=== PATIENT | male | born 1940 | race Caucasian/White ===

== ENCOUNTER 2020-06-14 11:49 | Emergency (ER) | payer OTHER ==
[~2020-06-14] VITALS: Ht 175.3 cm; Wt 72.6 kg
[2020-06-14 12:24] VITALS: BP_SYST 139
--- NOTE | 2020-06-14 12:24 | NUR ---
Patient to ER bed 2 to gown for evaluation. Side rails up. Report given to Emeli BUI.
--- NOTE | 2020-06-14 12:25 | NUR ---
Pt walked in to ER with c/o leg wound to LLE x 3weeks. V/S stable, pt is afebrile. Currently resting in bed, will continue to monitor.
--- NOTE | 2020-06-14 12:30 | NUR ---
ER Dr. Hein at bedside examining patient.
[2020-06-14] MEDS ORDERED: cephALEXin 500 MG CAPSULE PO ONE (12:45)
[2020-06-14] MEDS ORDERED: SULFAMETHOXAZOLE/TRIMETHOPR DS 1 TABLET PO ONE (12:45)
--- NOTE | 2020-06-14 12:55 | NUR ---
LLE wound cx collected and sent to the lab
[2020-06-14 13:28] VITALS: BP_SYST 144
--- NOTE | 2020-06-14 13:28 | NUR ---
Patient given written and verbal discharge instructions and verbalizes understanding. ER MD discussed with patient the results and treatment provided. Patient in stable condition. ID arm band removed. Rx of keflex,bactrim given. Patient educated on pain management and to follow up with PMD. Pain Scale 0/10. Opportunity for questions provided and answered. Medication side effect fact sheet provided.
== END 2020-06-14 13:28 | disposition home or self-care (01) ==
LOC: SED 11:49
DX: L03.116 Cellulitis of left lower limb (principal); F17.200 Nicotine dependence, unspecified, uncomplicated
CPT/HCPCS: 87070-TC; 99283

== ENCOUNTER 2022-01-25 13:17 | Emergency (ER) | payer OTHER ==
[~2022-01-25] VITALS: Ht 177.8 cm; Wt 68.0 kg
[2022-01-25 13:20] VITALS: BP_SYST 176
[2022-01-25 15:16] LABS: BASOPHILS % (AUTO) 0.7 % (0.0-2.0); EOSINOPHILS # (AUTO) 0.1 K/uL (0.0-0.4); EOSINOPHILS % (AUTO) 1.7 % (0.0-4.0); HEMOGLOBIN 12.3 g/dL (14.0-18.0); LYMPHOCYTES # (AUTO) 0.9 K/uL (1.0-5.5); LYMPHOCYTES % (AUTO) 11.8 % (20.5-51.5); MEAN CORPUSCULAR HEMOGLOBIN 30 pg (27-31); MEAN CORPUSCULAR HGB CONC 33 % (32-36); MEAN CORPUSCULAR VOLUME 90 fL (79.0-98.0); MONOCYTES # (AUTO) 0.8 K/uL (0.0-1.0); NEUTROPHILS # (AUTO) 5.4 K/uL (1.8-7.7); NEUTROPHILS % (AUTO) 74.8 % (40.0-70.0); PLATELET COUNT (AUTO) 212 K/uL (130-430); RED BLOOD CELL COUNT(AUTO) 4.11 MIL/uL (4.2-6.2); RED CELL DISTRIBUTION WIDTH 14.1 % (9.0-15.0); WHITE BLOOD COUNT (AUTO) 7.3 K/uL (4.8-10.8)
[2022-01-25 15:42] LABS: CALCIUM 8.4 mg/dL (8.4-11.0); CHLORIDE 105 mmol/L (98-107); CREATININE 1.63 mg/dL (0.55-1.30); GLUCOSE 92 mg/dL (70-99); POTASSIUM 4.4 mmol/L (3.5-5.1); SODIUM SERUM 137 mmol/L (136-145); UREA NITROGEN, BLOOD 21 mg/dL (8-21)
[2022-01-25 15:59] LABS: ANION GAP < 3 (5-15)
[2022-01-25 16:12] LABS: BILIRUBIN,URINE NEGATIVE (NEGATIVE); BLOOD, URINE 3+ (NEGATIVE); COLOR,URINE YELLOW (YELLOW); GLUCOSE,URINE NEGATIVE (NEGATIVE); KETONES,URINE NEGATIVE (NEGATIVE); LEUKOCYTE ESTERASE ,URINE 2+ (NEGATIVE); NITRITE, URINE NEGATIVE (NEGATIVE); PH,URINE 6.5 (5.0-8.0); PROTEIN URINE NEGATIVE (NEGATIVE); UROBILINOGEN,URINE 0.2 (0.2-1.0)
[2022-01-25] MEDS ORDERED: NACL 0.9% 1,000 ML IV ONE (16:15)
[2022-01-25 16:54] LABS: CLARITY/URINE HAZY (CLEAR)
[2022-01-25 17:01] LABS: BACTERIA,URINE FEW /HPF (None Seen); RBC,URINE 20-50 /HPF (0-3)
[2022-01-25 17:02] LABS: MUCUS,URINE None Seen /LPF (None Seen)
[2022-01-25 17:35] LABS: CALCIUM 8.4 mg/dL (8.4-11.0); CHLORIDE 107 mmol/L (98-107); CREATININE 1.46 mg/dL (0.55-1.30); GLUCOSE 85 mg/dL (70-99); POTASSIUM 4.8 mmol/L (3.5-5.1); SODIUM SERUM 136 mmol/L (136-145); UREA NITROGEN, BLOOD 20 mg/dL (8-21)
[2022-01-25 17:46] LABS: ANION GAP 3 (5-15)
[2022-01-25] MEDS ORDERED: CEPH250C PO (17:53)
[2022-01-25] MEDS ORDERED: cefTRIAXone 1 GM IVPB PREMIX 50 ML IV ONE (18:15)
[2022-01-25 18:50] VITALS: BP_SYST 158
== END 2022-01-25 18:51 | disposition home or self-care (01) ==
LOC: SED 13:17
DX: R33.9 Retention of urine, unspecified (principal)
CPT/HCPCS: 36415; 51702; 80048; 81000; 85025; 87086; 96361; 96365; 99284; J0696; J7030

== ENCOUNTER 2023-05-10 02:15 | Emergency (ER) | payer OTHER ==
[~2023-05-10] VITALS: Ht 172.7 cm; Wt 53.5 kg
[~2023-05-10 02:15] MED LIST: ACET325T PO; CYCL10TA25 PO; DOCU250C71 PO; HEPA500015 SUBCUT; MIRT-114 PO; ROCI2 IM/IV; SER25 PO
[2023-05-10 02:25] VITALS: BP_SYST 156; PULSE 70; RESP 17; TEMP 97.4; O2SAT 100
== END 2023-05-10 03:34 | disposition home or self-care (01) ==
LOC: SED 02:15
DX: T83.091A Other mechanical complication of indwelling urethral catheter, initial encounter (principal); I10 Essential (primary) hypertension; Z79.899 Other long term (current) drug therapy
CPT/HCPCS: 99283

== ENCOUNTER 2023-10-26 02:55 | Emergency (ER) | payer OTHER ==
[~2023-10-26] VITALS: Ht 175.3 cm; Wt 63.5 kg
[2023-10-26 02:55] VITALS: BP_SYST 154; PULSE 70; RESP 18; TEMP 97.8; O2SAT 98
[~2023-10-26 02:55] MED LIST changes: -MIRT-114 PO; +MIRT-147 PO
[2023-10-26] MEDS ORDERED: MORPHINE 4 MG INJ. 4 MG/ML VIAL IM ONE (03:15)
[2023-10-26] MEDS ORDERED: MORPHINE 4 MG INJ. 4 MG/ML VIAL ONE (03:17)
[2023-10-26 03:41] LABS: BILIRUBIN,URINE NEGATIVE (NEGATIVE); BLOOD, URINE 3+ (NEGATIVE); CLARITY/URINE SL CLOUDY (CLEAR); COLOR,URINE YELLOW (YELLOW); GLUCOSE,URINE NEGATIVE (NEGATIVE); KETONES,URINE NEGATIVE (NEGATIVE); LEUKOCYTE ESTERASE ,URINE 3+ (NEGATIVE); NITRITE, URINE POSITIVE (NEGATIVE); PROTEIN URINE 1+ (NEGATIVE); UROBILINOGEN,URINE 0.2 (0.2-1.0)
[2023-10-26 03:49] LABS: BACTERIA,URINE MODERATE /HPF (None Seen); RBC,URINE >100 /HPF (0-3); WBC,URINE 50-80 /HPF (0-3)
[2023-10-26] MEDS ORDERED: Cefpodoxime PO (03:52)
[2023-10-26 05:29] VITALS: BP_SYST 171; PULSE 63; RESP 18; O2SAT 96
== END 2023-10-26 05:32 | disposition home or self-care (01) ==
LOC: SED 02:55
DX: T83.098A Other mechanical complication of other urinary catheter, initial encounter (principal); R10.30 Lower abdominal pain, unspecified; I10 Essential (primary) hypertension; Z79.899 Other long term (current) drug therapy
CPT/HCPCS: 99284; 81001; 87086; 51702; 96372; 81000; 81015; J2270

== ENCOUNTER 2024-06-23 04:39 | Emergency (ER) | payer OTHER ==
[~2024-06-23] VITALS: Ht 177.8 cm; Wt 46.3 kg
[~2024-06-23 04:39] MED LIST changes: +Cefpodoxime PO
[2024-06-23 04:44] VITALS: BP_SYST 180; PULSE 54; RESP 18; TEMP 98.4; O2SAT 99
[2024-06-23 06:02] VITALS: BP_SYST 166; PULSE 61; RESP 18; TEMP 98.4; O2SAT 99
== END 2024-06-23 06:00 | disposition home or self-care (01) ==
LOC: SED 04:39
DX: T83.091A Other mechanical complication of indwelling urethral catheter, initial encounter (principal); I10 Essential (primary) hypertension; N40.0 Benign prostatic hyperplasia without lower urinary tract symptoms; Z79.899 Other long term (current) drug therapy; Z85.828 Personal history of other malignant neoplasm of skin; Y84.6 Urinary catheterization as the cause of abnormal reaction of the patient, or of later complication, without mention of misadventure at the time of the procedure; Y92.89 Other specified places as the place of occurrence of the external cause
CPT/HCPCS: 99284

== ENCOUNTER 2024-07-15 16:21 | Emergency (ER) | payer OTHER ==
[~2024-07-15] VITALS: Ht 177.8 cm; Wt 46.3 kg
[2024-07-15 16:21] VITALS: BP_SYST 116; PULSE 75; RESP 18; TEMP 98.4; O2SAT 100
[2024-07-15] MEDS: KETOROLAC TROMETHAMINE 30 MG VIAL IM ONE (18:18)
[2024-07-15 18:49] LABS: BILIRUBIN,URINE NEGATIVE (NEGATIVE); BLOOD, URINE 2+ (NEGATIVE); CLARITY/URINE CLEAR (CLEAR); COLOR,URINE YELLOW (YELLOW); GLUCOSE,URINE NEGATIVE (NEGATIVE); KETONES,URINE NEGATIVE (NEGATIVE); LEUKOCYTE ESTERASE ,URINE 3+ (NEGATIVE); NITRITE, URINE POSITIVE (NEGATIVE); PH,URINE 7.5 (5.0-8.0); PROTEIN URINE 2+ (NEGATIVE); UROBILINOGEN,URINE 0.2 (0.2-1.0)
[2024-07-15 19:18] LABS: RBC,URINE >100 /HPF (0-3)
[2024-07-15 19:19] LABS: BACTERIA,URINE MANY /HPF (None Seen); WBC,URINE >100 /HPF (0-3)
[2024-07-15] MEDS ORDERED: LIDOCAINE 1%, 20 ML MDV 20 ML ONE (20:29)
[2024-07-15] MEDS: cefTRIAXone 1 GM VIAL IM ONE (20:36)
[2024-07-15] MEDS ORDERED: LEVO-62 PO (20:39)
[2024-07-15 20:50] VITALS: BP_SYST 116; PULSE 75; RESP 18; TEMP 98.4; O2SAT 100
== END 2024-07-15 20:44 | disposition home or self-care (01) ==
LOC: SED 16:21
DX: N39.0 Urinary tract infection, site not specified (principal); N40.0 Benign prostatic hyperplasia without lower urinary tract symptoms; I10 Essential (primary) hypertension; Z85.828 Personal history of other malignant neoplasm of skin; Z79.899 Other long term (current) drug therapy
CPT/HCPCS: 99284; 81001; 87086; 96372; J0696; J1885; J2003; 81000; 81015

== ENCOUNTER 2024-07-19 00:24 | Inpatient (IN) | payer OTHER ==
[~2024-07-19] VITALS: Ht 177.8 cm; Wt 55.8 kg
[~2024-07-19 00:24] MED LIST changes: +LEVO-62 PO
[2024-07-19 00:44] VITALS: BP_SYST 135; PULSE 78; RESP 20; TEMP 98; O2SAT 95
[2024-07-19] MEDS ORDERED: PIPERACILLIN/TAZOBACTAM 3.375 GM/VIAL (ZOSYN) IV ONE ×2 (01:41→08:15)
[2024-07-19] MEDS: PIPERACILLIN/TAZO 3.375 GM in NS 50 ML IV ONE (01:50)
[2024-07-19] MEDS: MORPHINE 2 MG/ML INJ. SYRINGE IVP ONE ×2 (01:52→03:58)
[2024-07-19 02:29] LABS: ANION GAP 8 (5-15); CALCIUM 9.1 mg/dL (8.4-11.0); CARBON DIOXIDE 26 mmol/L (23-29); CHLORIDE 106 mmol/L (98-107); CREATININE 2.62 mg/dL (0.55-1.30); GLUCOSE 79 mg/dL (74-106); POTASSIUM 4.5 mmol/L (3.5-5.1); SODIUM SERUM 140 mmol/L (136-145); UREA NITROGEN, BLOOD 56 mg/dL (8-21)
[2024-07-19 02:32] LABS: BASOPHILS % (AUTO) 0.5 % (0.0-2.0); EOSINOPHILS # (AUTO) 0.1 K/uL (0.0-0.4); EOSINOPHILS % (AUTO) 1.3 % (0.0-4.0); HEMOGLOBIN 7.2 g/dL (14.0-18.0); LYMPHOCYTES # (AUTO) 1.1 K/uL (1.0-5.5); LYMPHOCYTES % (AUTO) 17.3 % (20.5-51.5); MEAN CORPUSCULAR HEMOGLOBIN 28 pg (27-31); MEAN CORPUSCULAR HGB CONC 34 % (32-36); MEAN CORPUSCULAR VOLUME 84 fL (79.0-98.0); MONOCYTES # (AUTO) 0.9 K/uL (0.0-1.0); MONOCYTES % (AUTO) 13.1 % (1.7-9.3); NEUTROPHILS # (AUTO) 4.4 K/uL (1.8-7.7); NEUTROPHILS % (AUTO) 67.8 % (40.0-70.0); PLATELET COUNT (AUTO) 301 K/uL (130-430); RED BLOOD CELL COUNT(AUTO) 2.58 MIL/uL (4.2-6.2); RED CELL DISTRIBUTION WIDTH 14.7 % (9.0-15.0); WHITE BLOOD COUNT (AUTO) 6.5 K/uL (4.8-10.8)
[2024-07-19 02:46] LABS: HEMATOCRIT 21.5 % (36-54)
[2024-07-19 03:48] LABS: BILIRUBIN,URINE 1+ (NEGATIVE); BLOOD, URINE 3+ (NEGATIVE); CLARITY/URINE CLOUDY (CLEAR); GLUCOSE,URINE TRACE (NEGATIVE); KETONES,URINE TRACE (NEGATIVE); LEUKOCYTE ESTERASE ,URINE 3+ (NEGATIVE); NITRITE, URINE POSITIVE (NEGATIVE); PROTEIN URINE 3+ (NEGATIVE)
[2024-07-19 03:53] LABS: COLOR,URINE REDDISH (YELLOW)
[2024-07-19 04:06] LABS: BACTERIA,URINE MODERATE /HPF (None Seen); RBC,URINE >100 /HPF (0-3); URINE SULFO SALICYLIC ACID NEGATIVE (NEGATIVE); WBC,URINE >100 /HPF (0-3)
[2024-07-19] MEDS ORDERED: ACETAMINOPHEN 325 MG TABLET PO PRN (07:45)
[2024-07-19] MEDS ORDERED: MAGNESIUM SULFATE 50 ML IV PRN (07:45)
[2024-07-19] MEDS ORDERED: POTASSIUM CHLORIDE 20 MEQ TABLET.ER PO PRN (07:45)
[2024-07-19] MEDS ORDERED: ONDANSETRON HCL 4 MG/2 ML VIAL IVP PRN (07:45)
[2024-07-19] MEDS ORDERED: MORPHINE 2 MG/ML INJ. SYRINGE IVP PRN (07:45)
[2024-07-19] MEDS ORDERED: MUPIROCIN 2% TOPICAL OINTMENT 22 GM NS PRN (07:45)
[2024-07-19] MEDS ORDERED: DOCUSATE SODIUM 100 MG CAPSULE PO PRN (07:45)
[2024-07-19] MEDS: PIPERACILLIN/TAZO 3.375 GM in NS 50 ML IV SCH ×2 (08:22→18:13)
[2024-07-19 10:50] VITALS: BP_SYST 156; PULSE 65; RESP 16; TEMP 97.8; O2SAT 100
[2024-07-19] MEDS: NACL 0.9% 1,000 ML IV SCH (10:50)
[2024-07-19 11:50] LABS: HEMOGLOBIN 7.2 g/dL (14.0-18.0)
[2024-07-19 11:52] LABS: HEMATOCRIT 21.8 % (36-54)
[2024-07-19] MEDS: HEPARIN SODIUM,PORCINE 5,000 UNITS/ML VIAL SUBCUT SCH (11:56)
[2024-07-19 12:00] VITALS: BP_SYST 129; PULSE 60; RESP 16; TEMP 98.1; O2SAT 100
[2024-07-19] MEDS ORDERED: hydrALAZINE HCL 10 MG TABLET PO SCH (14:15)
[2024-07-19] MEDS ORDERED: hydrALAZINE HCL 10 MG TABLET PO PRN (14:25)
[2024-07-19] MEDS: hydrALAZINE HCL 10 MG TABLET PO ONE (15:15)
[2024-07-19] MEDS: MORPHINE 2 MG/ML INJ. SYRINGE IVP PRN (15:19)
[2024-07-19 19:00] VITALS: BP_SYST 132; PULSE 62; RESP 16; TEMP 97.8; O2SAT 96
[2024-07-19 20:00] VITALS: BP_SYST 132; PULSE 62; RESP 16; TEMP 97.8; O2SAT 96
[2024-07-20 00:54] VITALS: BP_SYST 157; PULSE 58; RESP 18; TEMP 97.4; O2SAT 97
[2024-07-20 07:36] LABS: ANION GAP 2 (5-15); CALCIUM 8.2 mg/dL (8.4-11.0); CARBON DIOXIDE 28 mmol/L (23-29); CHLORIDE 111 mmol/L (98-107); CREATININE 2.21 mg/dL (0.55-1.30); GLUCOSE 102 mg/dL (74-106); POTASSIUM 4.3 mmol/L (3.5-5.1); SODIUM SERUM 141 mmol/L (136-145); UREA NITROGEN, BLOOD 40 mg/dL (8-21)
[2024-07-20 07:49] LABS: BASOPHILS % (AUTO) 0.7 % (0.0-2.0); EOSINOPHILS # (AUTO) 0.2 K/uL (0.0-0.4); EOSINOPHILS % (AUTO) 3.8 % (0.0-4.0); LYMPHOCYTES # (AUTO) 1.2 K/uL (1.0-5.5); LYMPHOCYTES % (AUTO) 24.2 % (20.5-51.5); MEAN CORPUSCULAR HEMOGLOBIN 27 pg (27-31); MEAN CORPUSCULAR HGB CONC 33 % (32-36); MEAN CORPUSCULAR VOLUME 84 fL (79.0-98.0); MONOCYTES # (AUTO) 0.8 K/uL (0.0-1.0); MONOCYTES % (AUTO) 14.8 % (1.7-9.3); NEUTROPHILS # (AUTO) 2.9 K/uL (1.8-7.7); NEUTROPHILS % (AUTO) 56.5 % (40.0-70.0); PLATELET COUNT (AUTO) 288 K/uL (130-430); RED BLOOD CELL COUNT(AUTO) 2.46 MIL/uL (4.2-6.2); RED CELL DISTRIBUTION WIDTH 15.2 % (9.0-15.0); WHITE BLOOD COUNT (AUTO) 5.1 K/uL (4.8-10.8)
[2024-07-20 08:00] VITALS: BP_SYST 152; PULSE 68; RESP 16; TEMP 97.8; O2SAT 96
[2024-07-20 08:15] LABS: HEMATOCRIT 20.5 % (36-54); HEMOGLOBIN 6.7 g/dL (14.0-18.0)
[2024-07-20 12:02] VITALS: BP_SYST 128; PULSE 58; RESP 18; TEMP 97.9; O2SAT 100
[2024-07-20 16:32] VITALS: BP_SYST 134; PULSE 55; RESP 18; TEMP 98.2; O2SAT 99
[2024-07-20] MEDS ORDERED: ACETAMINOPHEN 325 MG TABLET PO PRN (17:00)
[2024-07-20 17:41] LABS: HEMATOCRIT 24.8 % (36-54); HEMOGLOBIN 8.2 g/dL (14.0-18.0)
[2024-07-20 19:00] VITALS: BP_SYST 106; PULSE 66; RESP 16; TEMP 97.9; O2SAT 98; O2SAT 99
[2024-07-20 20:00] VITALS: BP_SYST 106; PULSE 66; RESP 16; TEMP 97.9; O2SAT 99
[2024-07-21] VITALS: BP_SYST 108; PULSE 62; RESP 16; TEMP 97.6; O2SAT 98
[2024-07-21 07:06] LABS: BASOPHILS % (AUTO) 0.7 % (0.0-2.0); EOSINOPHILS # (AUTO) 0.2 K/uL (0.0-0.4); EOSINOPHILS % (AUTO) 4.4 % (0.0-4.0); HEMATOCRIT 23.4 % (36-54); HEMOGLOBIN 7.6 g/dL (14.0-18.0); LYMPHOCYTES # (AUTO) 1.2 K/uL (1.0-5.5); LYMPHOCYTES % (AUTO) 23.1 % (20.5-51.5); MEAN CORPUSCULAR HEMOGLOBIN 27 pg (27-31); MEAN CORPUSCULAR HGB CONC 33 % (32-36); MEAN CORPUSCULAR VOLUME 81 fL (79.0-98.0); MONOCYTES # (AUTO) 0.6 K/uL (0.0-1.0); MONOCYTES % (AUTO) 11.4 % (1.7-9.3); NEUTROPHILS # (AUTO) 3.2 K/uL (1.8-7.7); NEUTROPHILS % (AUTO) 60.4 % (40.0-70.0); PLATELET COUNT (AUTO) 288 K/uL (130-430); RED BLOOD CELL COUNT(AUTO) 2.89 MIL/uL (4.2-6.2); RED CELL DISTRIBUTION WIDTH 17.7 % (9.0-15.0); WHITE BLOOD COUNT (AUTO) 5.3 K/uL (4.8-10.8)
[2024-07-21 07:07] LABS: ANION GAP 10 (5-15); CALCIUM 8.3 mg/dL (8.4-11.0); CARBON DIOXIDE 25 mmol/L (23-29); CHLORIDE 111 mmol/L (98-107); CREATININE 2.08 mg/dL (0.55-1.30); GLUCOSE 133 mg/dL (74-106); POTASSIUM 4.1 mmol/L (3.5-5.1); SODIUM SERUM 146 mmol/L (136-145); UREA NITROGEN, BLOOD 30 mg/dL (8-21)
[2024-07-21 08:00] VITALS: BP_SYST 133; PULSE 58; RESP 16; TEMP 97.8; O2SAT 99
[2024-07-21 10:06] LABS: % FREE PSA 24.8 % (.); FREE PSA 1.44 ng/mL; PROSTATE SPECIFIC AG TOTAL 5.8 ng/mL (0.0-4.0)
[2024-07-21 12:00] VITALS: BP_SYST 131; PULSE 61; RESP 16; TEMP 98.1; O2SAT 100
[2024-07-21] MEDS: SOD FERRIC GLUC COMPLEX/SUC 125 MG in NS 100 ML IV SCH (13:56)
[2024-07-21] MEDS ORDERED: FINA-37 PO (15:11)
[2024-07-21] MEDS ORDERED: FERR-69 PO (15:11)
[2024-07-21] MEDS ORDERED: TAMS-11 PO (15:11)
[2024-07-21 17:01] VITALS: BP_SYST 135; PULSE 87; RESP 18; TEMP 97.8; O2SAT 100
[2024-07-21] MEDS: EPOETIN ALFA-EPBX 4,000 UNITS/ML VIAL SUBCUT ONE (17:32)
== END 2024-07-21 19:10 | disposition home health service (06) | DRG 699 ==
LOC: SED 00:24 → SMU 03:13
PROVIDERS: ADMIT Family Medicine; ATTEND Family Medicine
PROC: 30233N1 Transfusion of Nonautologous Red Blood Cells into Peripheral Vein, Percutaneous Approach (ICD-10-PCS; principal; 2024-07-20)
DX: T83.518A Infection and inflammatory reaction due to other urinary catheter, initial encounter (principal); D62 Acute posthemorrhagic anemia; N39.0 Urinary tract infection, site not specified; N17.9 Acute kidney failure, unspecified; R65.10 Systemic inflammatory response syndrome (SIRS) of non-infectious origin without acute organ dysfunction; F17.210 Nicotine dependence, cigarettes, uncomplicated; I10 Essential (primary) hypertension; N40.1 Benign prostatic hyperplasia with lower urinary tract symptoms; R33.8 Other retention of urine; Z85.828 Personal history of other malignant neoplasm of skin; Z90.89 Acquired absence of other organs; R31.9 Hematuria, unspecified
CPT/HCPCS: 36415; 80048; 81000; 81001; 81015; 83605; 83735; 84153; 85018; 85025; 86886; 86900; 86901; 86920; 87040; 87086; 87186; 97110-GP; 97116-GP; 97530-GP; 99285; J1644; J2270; J2543; J2916; J7030; J7050; P9021; Q5106